=== PATIENT | male | born 1995 | race Caucasian/White ===

== ENCOUNTER 2020-11-12 15:50 | Emergency (ER) | payer OTHER, MEDICARE, SELFPAY ==
[2020-11-12 16:20] VITALS: BP 139/90; PULSE 98; RESP 20; TEMP 37.5; O2SAT 96
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
[2020-11-12 16:43] VITALS: BP 139/90; PULSE 98; RESP 20; TEMP 37.5; O2SAT 96
== END 2020-11-12 16:50 | disposition home or self-care (01) ==
PROVIDERS: Emergency Provider Nurse Practitioner; PCP Internal Medicine
DX: S31.811A Laceration without foreign body of right buttock, initial encounter (principal); W26.0XXA Contact with knife, initial encounter; F17.200 Nicotine dependence, unspecified, uncomplicated; K21.9 Gastro-esophageal reflux disease without esophagitis
CPT/HCPCS: 99213; G0463

== ENCOUNTER 2024-05-10 18:42 | Emergency (ER) | payer OTHER, SELFPAY ==
--- NOTE | 2024-05-10 18:51 | ED.GENADULT ---
HPI - General Adult General Chief complaint: Dental/Oral Stated complaint: Vomiting/Toothache/Fever Time Seen by Provider: 05/10/24 18:51 Source: patient, RN notes reviewed and old records reviewed Mode of arrival: ambulatory Limitations: no limitations History of Present Illness HPI narrative: 29-year-old male to [facility] for complaint left upper molar pain, maxillary pain and swelling for 1 week. Patient reports the pain has become acutely worse over past 2 days. Patient endorses history of drug use , poor dentition and dental abscesses. Patient has attempted to treat at home with [id number] medication without relief. Patient denies difficulty swallowing, cough, fever, headache, dizziness, chills, allergies. Patient able to tolerate fluids by mouth. Respirations even and nonlabored. Mild swelling noted to left maxilla. Patient in no acute distress. Related Data Home Medications Medication Instructions Recorded Confirmed Suboxone 05/10/24 Allergies Allergy/AdvReac Type Severity Reaction Status Date / Time No Known Allergies Allergy Verified 11/12/20 16:15 Review of Systems Review of Systems: All systems reviewed & are unremarkable except as noted in HPI and below Constitutional: Constitutional: Reports no additional constitutional complaints Eyes: Eyes: Reports no additional eye complaints ENT: Reports as per HPI, Denies change in voice, Reports dental pain, Denies dysphagia, Reports headache(s), Denies hoarseness, Reports mouth pain, Denies sore throat, Denies throat swelling and Denies tongue swelling Cardiovascular: Cardiovascular: Reports no additional cardiovascular complaints, Denies chest pain and Denies dyspnea Respiratory: Respiratory: Reports no additional respiratory complaints, Denies cough and Denies dyspnea Musculoskeletal: Musculoskeletal: Reports no additional musculoskeletal complaints Neurologic: Reports system reviewed and no additional complaints, except as documented Psychiatric: Psychiatric: Reports no additional psychiatric complaints [facility] Past Medical History Medical History Chronic pain Depression GERD (gastroesophageal reflux disease) Migraine headache Sleep disorder Small bowel obstruction Ulcerative colitis Social History Social History Smoking status: Current every day smoker Tobacco type: e-cigarettes/vaping Alcohol intake: never Comments At the time of my signature, I reviewed and agree with the nursing past medical, surgical, social, and family history. There is no relevant family history pertinent to the patient complaint. Exam Const: General: cooperative, no acute distress, alert, ill appearing chronically, tired appearing, uncomfortable and well nourished Nutritional Appearance: well nourished Orientation/consciousness: patient oriented x3 Limitations: no limitations HENMT: Head: normal to inspection Ears: external ears normal Face/Nose/Sinus: Normal external nose present, Normal nares present, No erythema, No edema and Facial tenderness on exam of face and sinuses ( left maxilla) Face and sinus: no erythema and edema on the left maxilla Mouth: Yes Normal oral and palatal mucosa present Teeth and gingiva: abnormal tooth and associated gingiva, caries, edentulous, gingiva abnormal edematous, diffusely erythematous, tender, receding and discolored; without any purulent discharge and poor dentition Throat: posterior oropharynx normal Eyes: General: appearance normal, both eyes and all related structures Neck: Neck: normal visual inspection, full ROM and no meningeal signs Lymphatic: no lymphadenopathy noted and no lymphedema noted Chest: Chest palpation & inspection: normal inspection of the chest Resp: Effort & Inspection: normal respiratory effort and able to speak in complete sentences Auscultation: clear to ausc
[2024-05-10 18:56] VITALS: BP 129/81; PULSE 59; RESP 16; TEMP 36.6; O2SAT 100
== END 2024-05-10 19:41 | disposition home or self-care (01) ==
PROVIDERS: Emergency Provider Nurse Practitioner Family
DX: K02.9 Dental caries, unspecified (principal); K05.10 Chronic gingivitis, plaque induced; K04.7 Periapical abscess without sinus; S02.5XXA Fracture of tooth (traumatic), initial encounter for closed fracture; X58.XXXA Exposure to other specified factors, initial encounter; K21.9 Gastro-esophageal reflux disease without esophagitis; F17.290 Nicotine dependence, other tobacco product, uncomplicated
CPT/HCPCS: 99213; G0463